=== PATIENT | male | born 1940 | race Caucasian/White ===

== ENCOUNTER 2023-08-01 19:04 | Inpatient (IN) | payer MEDICARE ==
[~2023-08-01] VITALS: Ht 177.8 cm; Wt 81.1 kg
[2023-08-01 20:13] LABS: BASOPHILS % (AUTO) 0.6 % (0-1); EOSINOPHILS # (AUTO) 0.1 X10'3 (0-0.9); EOSINOPHILS % (AUTO) 1.4 % (0-6); HEMOGLOBIN 8.9 g/dl (14.0-17.9); LYMPHOCYTES # (AUTO) 0.4 X10'3 (1.1-4.8); LYMPHOCYTES % (AUTO) 5.7 % (21-51); MEAN CORPUSCULAR HEMOGLOBIN 29.4 PG (27.0-31.0); MEAN CORPUSCULAR HGB CONC 31.8 g/dL (33.0-36.5); MEAN CORPUSCULAR VOLUME 92.3 FL (78-98); MONOCYTES # (AUTO) 0.7 X10'3 (0-0.9); MONOCYTES % (AUTO) 9.5 % (2-12); NEUTROPHILS # (AUTO) 5.7 X10'3 (1.8-7.7); NEUTROPHILS % (AUTO) 82.8 % (42-75); PLATELET COUNT 278 X10'3 (140-440); RED BLOOD COUNT 3.04 X10'6 (4.70-6.10); RED CELL DISTRIBUTION WIDTH 15.4 % (11.5-14.5); WHITE BLOOD COUNT 6.8 X10'3 (4.5-11.0)
[2023-08-01 20:30] LABS: ALANINE AMINOTRANSFERASE 56 U/L (12-78); ALBUMIN 3.1 G/DL (3.4-5.0); ALBUMIN/GLOBULIN RATIO 0.8 (1.1-1.5); ALKALINE PHOSPHATASE 72 IU/L (46-116); ANION GAP 23 (8-16); ASPARTATE AMINO TRANSFERASE 58 U/L (10-37); BILIRUBIN,TOTAL 0.6 MG/DL (0.1-1.0); BLOOD UREA NITROGEN 98 MG/DL (7-18); BUN/CREATININE RATIO 12.6 (10.0-20.0); CALCIUM 8.5 MG/DL (8.5-10.1); CHLORIDE 100 MMOL/L (99-107); CREATININE 7.75 MG/DL (0.60-1.10); GLUCOSE 91 MG/DL (70-104); POTASSIUM 3.4 MMOL/L (3.5-5.1); SODIUM 140 MMOL/L (135-145); TOTAL CARBON DIOXIDE 16.6 MMOL/L (24-32); eCRCL 8 ML/MIN; eGFR 7 ML/MIN
[2023-08-01 20:40] LABS: PRO BRAIN NATRIURETIC PEPTIDE > 30000 PG/ML (0-450)
[2023-08-01 21:09] LABS: MAGNESIUM 2.6 MG/DL (1.5-2.4)
[2023-08-01 21:11] LABS: PHOSPHORUS 11.1 MG/DL (2.3-4.5)
[2023-08-01] MEDS ORDERED: magnesium 4gm in 100ml NS 100 ML IV PRN (22:20)
[2023-08-01] MEDS ORDERED: magnesium 2GM in 50ml NS 50 ML IV PRN (22:20)
[2023-08-01] MEDS ORDERED: ondansetron/PF 4mg/2ml inj IV PRN (22:20)
[2023-08-01] MEDS ORDERED: potassium Cl 40MEQ/1/2NS 520ml 520 ML IV PRN (22:20)
[2023-08-01] MEDS ORDERED: magnesium Cl slow-release 64mg tablet PO PRN (22:20)
[2023-08-01] MEDS ORDERED: potassium Cl 20 mEq SR tablet PO PRN (22:20)
[2023-08-02 03:12] LABS: BASOPHILS % (AUTO) 0.3 % (0-1); EOSINOPHILS # (AUTO) 0.2 X10'3 (0-0.9); EOSINOPHILS % (AUTO) 2.6 % (0-6); HEMOGLOBIN 8.9 g/dl (14.0-17.9); LYMPHOCYTES # (AUTO) 0.6 X10'3 (1.1-4.8); LYMPHOCYTES % (AUTO) 7.9 % (21-51); MEAN CORPUSCULAR HEMOGLOBIN 29.7 PG (27.0-31.0); MEAN CORPUSCULAR HGB CONC 32.9 g/dL (33.0-36.5); MEAN CORPUSCULAR VOLUME 90.3 FL (78-98); MEAN PLATELET VOLUME 7.9 FL (7.4-10.4); MONOCYTES # (AUTO) 0.9 X10'3 (0-0.9); MONOCYTES % (AUTO) 12.2 % (2-12); NEUTROPHILS # (AUTO) 5.8 X10'3 (1.8-7.7); PLATELET COUNT 281 X10'3 (140-440); RED BLOOD COUNT 2.99 X10'6 (4.70-6.10); RED CELL DISTRIBUTION WIDTH 15.6 % (11.5-14.5); WHITE BLOOD COUNT 7.6 X10'3 (4.5-11.0)
[2023-08-02 03:20] LABS: ALBUMIN 2.9 G/DL (3.4-5.0); ANION GAP 23 (8-16); BLOOD UREA NITROGEN 104 MG/DL (7-18); BUN/CREATININE RATIO 12.7 (10.0-20.0); CALCIUM 8.8 MG/DL (8.5-10.1); CHLORIDE 99 MMOL/L (99-107); CREATININE 8.16 MG/DL (0.60-1.10); GLUCOSE 78 MG/DL (70-104); MAGNESIUM 2.8 MG/DL (1.5-2.4); POTASSIUM 3.4 MMOL/L (3.5-5.1); SODIUM 140 MMOL/L (135-145); TOTAL CARBON DIOXIDE 18.5 MMOL/L (24-32); eCRCL 7 ML/MIN; eGFR 6 ML/MIN
[2023-08-02] MEDS: K and/or MAG REPLACEMENT MC SCH (08:00)
[2023-08-02 09:16] LABS: BILIRUBIN,URINE NEGATIVE (Neg); CLARITY,URINE CLEAR (Clear); COLOR,URINE YELLOW (Yellow); GLUCOSE, URINE NEGATIVE (Neg); KETONES,URINE NEGATIVE (Neg); LEUKOCYTE ESTERASE ,URINE NEGATIVE (Neg); NITRITES, URINE NEGATIVE (Neg); OCCULT BLOOD,URINE SMALL (Neg); PH,URINE 5.5 (4.8-8.0); PROTEIN,URINE TRACE mg/dl (Neg); UROBILINOGEN,URINE 0.2 E.U/dL (0.2-1.0)
[2023-08-02 09:19] LABS: UA COLLECTION TYPE URINAL
[2023-08-02 09:20] LABS: BACTERIA,URINE NONE SEEN /HPF (Neg); MUCUS STRANDS NONE SEEN /LPF (Neg); RBC,URINE 0-2 /HPF (0-2); SQUAMOUS EPITHELIAL CELL,UR NONE SEEN /LPF (FEW); WBC,URINE 0-4 /HPF (0-4)
[2023-08-02 09:26] LABS: URINE AMPHETAMINE SCREEN NEGATIVE (Neg); URINE BARBITUATE SCREEN NEGATIVE (Neg); URINE BENZODIAZEPINES SCREEN NEGATIVE (Neg); URINE CANNABINOID SCREEN NEGATIVE (Neg); URINE COCAINE SCREEN NEGATIVE (Neg); URINE METHADONE SCREEN NEGATIVE (Neg); URINE OPIATE SCREEN POSITIVE (Neg); URINE PHENCYCLIDINE SCREEN NEGATIVE (Neg)
[2023-08-02] MEDS ORDERED: normal saline 1000ml 100 ML IV PRN (15:20)
[2023-08-02] MEDS: EPOETIN ALFA-EPBX 20,000 UNIT/ML 1 ML MDV IV ONE (15:44)
[2023-08-02] MEDS: heparin 1,000 units/ml 10ml inj HE ONE (16:00)
[2023-08-02 16:36] VITALS: BP 126/79; PULSE 117; RESP 18; TEMP 97.7; O2SAT 99
[2023-08-02 16:46] VITALS: RESP 18; O2SAT 99
[2023-08-02 19:00] VITALS: BP 134/89; PULSE 105; RESP 17; TEMP 97.7; O2SAT 92
[2023-08-03] VITALS (13 sets, daily range): BP systolic 107–139; BP diastolic 70–86; PULSE 89–128; RESP 16–21; TEMP 97.1–97.7; O2SAT 93–100
[2023-08-03 05:46] LABS: APTT 31 SECONDS (22-32); BASOPHILS # (AUTO) 0.1 X10'3 (0-0.2); BASOPHILS % (AUTO) 0.7 % (0-1); EOSINOPHILS # (AUTO) 0.3 X10'3 (0-0.9); EOSINOPHILS % (AUTO) 3.4 % (0-6); HEMATOCRIT 27.5 % (42.0-52.0); INR 1.1 INR; LYMPHOCYTES # (AUTO) 0.5 X10'3 (1.1-4.8); LYMPHOCYTES % (AUTO) 6.7 % (21-51); MEAN CORPUSCULAR HEMOGLOBIN 29.9 PG (27.0-31.0); MEAN CORPUSCULAR HGB CONC 32.9 g/dL (33.0-36.5); MEAN CORPUSCULAR VOLUME 90.9 FL (78-98); MEAN PLATELET VOLUME 8.4 FL (7.4-10.4); MONOCYTES # (AUTO) 0.9 X10'3 (0-0.9); MONOCYTES % (AUTO) 11.3 % (2-12); NEUTROPHILS # (AUTO) 6.1 X10'3 (1.8-7.7); NEUTROPHILS % (AUTO) 77.9 % (42-75); PLATELET COUNT 268 X10'3 (140-440); PROTHROMBIN TIME 12.1 SECONDS (9.0-12.0); RED BLOOD COUNT 3.03 X10'6 (4.70-6.10); RED CELL DISTRIBUTION WIDTH 15.5 % (11.5-14.5); WHITE BLOOD COUNT 7.9 X10'3 (4.5-11.0)
[2023-08-03 05:54] LABS: ALBUMIN 2.8 G/DL (3.4-5.0); ANION GAP 19 (8-16); BLOOD UREA NITROGEN 103 MG/DL (7-18); BUN/CREATININE RATIO 12.9 (10.0-20.0); CALCIUM 8.6 MG/DL (8.5-10.1); CHLORIDE 102 MMOL/L (99-107); CREATININE 7.99 MG/DL (0.60-1.10); GLUCOSE 102 MG/DL (70-104); MAGNESIUM 2.7 MG/DL (1.5-2.4); POTASSIUM 3.2 MMOL/L (3.5-5.1); SODIUM 141 MMOL/L (135-145); TOTAL CARBON DIOXIDE 20.5 MMOL/L (24-32); eCRCL 7 ML/MIN; eGFR 7 ML/MIN
[2023-08-03] MEDS: potassium Cl 20 mEq SR tablet PO PRN (07:43)
[2023-08-03] MEDS ORDERED: DORZ10DR32 EACHEYE (07:54)
[2023-08-03] MEDS ORDERED: FURO-149 PO (08:00)
[2023-08-03] MEDS ORDERED: CARSR60C PO (08:01)
[2023-08-03] MEDS ORDERED: XAL0.005OS OP (08:03)
[2023-08-03] MEDS ORDERED: POTA-208 PO (08:04)
[2023-08-03] MEDS ORDERED: Melatonin 3mg tablet PO PRN (10:55)
[2023-08-03] MEDS: morphine 2 MG/ML inj. syringe IV PRN (11:13)
[2023-08-03] MEDS ORDERED: heparin 1,000unit/ml 10ml vial 10 ML ONE (11:24)
[2023-08-03] MEDS ORDERED: midazolam 1 mg/ML 2ml injection ONE (12:02)
[2023-08-03] MEDS ORDERED: fentaNYL/PF 50MCG/1 ML 2ML syringe ONE (12:02)
[2023-08-03] MEDS ORDERED: DILT-94 PO (13:09)
[2023-08-03] MEDS ORDERED: FURO20TA4 PO (13:10)
[2023-08-03] MEDS ORDERED: FLO0.4C PO (13:11)
[2023-08-03] MEDS ORDERED: BRIM5DRO6 EACHEYE (13:12)
[2023-08-03] MEDS ORDERED: SODI650T29 PO (13:13)
[2023-08-03] MEDS: mannitol 12.5gm/50mL VIAL IV ONE (13:29)
[2023-08-03] MEDS ORDERED: dorzolamide/timolol (Cosopt) ophthalmic drops 10ml bottle EACHEYE SCH (20:00)
[2023-08-03] MEDS ORDERED: diltiazem SR 60mg capsule (twice daily) PO SCH (20:00)
[2023-08-03] MEDS: diltiazem CD 120mg capsule (once-daily) PO ONE (20:37)
[2023-08-03] MEDS: HYDROcodone/acetaminophen 10/325mg tab PO PRN (20:38)
[2023-08-03] MEDS: brimonidine 0.2% 5 ML ophthalmic drops EACHEYE SCH (21:00)
[2023-08-04] VITALS (11 sets, daily range): BP systolic 92–118; BP diastolic 48–68; PULSE 89–123; RESP 16–22; TEMP 97.7–98.1; O2SAT 95–100
[2023-08-04 06:51] LABS: ALBUMIN 2.7 G/DL (3.4-5.0); ANION GAP 15 (8-16); BLOOD UREA NITROGEN 58 MG/DL (7-18); BUN/CREATININE RATIO 11.3 (10.0-20.0); CALCIUM 8.3 MG/DL (8.5-10.1); CHLORIDE 103 MMOL/L (99-107); CREATININE 5.12 MG/DL (0.60-1.10); GLUCOSE 98 MG/DL (70-104); MAGNESIUM 2.3 MG/DL (1.5-2.4); POTASSIUM 3.5 MMOL/L (3.5-5.1); SODIUM 142 MMOL/L (135-145); TOTAL CARBON DIOXIDE 24.1 MMOL/L (24-32); eCRCL 12 ML/MIN; eGFR 11 ML/MIN
[2023-08-04 06:52] LABS: BASOPHILS % (AUTO) 0.6 % (0-1); EOSINOPHILS # (AUTO) 0.2 X10'3 (0-0.9); EOSINOPHILS % (AUTO) 3.7 % (0-6); HEMATOCRIT 27.8 % (42.0-52.0); HEMOGLOBIN 9.2 g/dl (14.0-17.9); LYMPHOCYTES # (AUTO) 0.8 X10'3 (1.1-4.8); LYMPHOCYTES % (AUTO) 12.7 % (21-51); MEAN CORPUSCULAR HEMOGLOBIN 30.1 PG (27.0-31.0); MEAN CORPUSCULAR HGB CONC 33.1 g/dL (33.0-36.5); MEAN CORPUSCULAR VOLUME 90.9 FL (78-98); MEAN PLATELET VOLUME 8.2 FL (7.4-10.4); MONOCYTES # (AUTO) 0.9 X10'3 (0-0.9); MONOCYTES % (AUTO) 14.4 % (2-12); NEUTROPHILS # (AUTO) 4.2 X10'3 (1.8-7.7); NEUTROPHILS % (AUTO) 68.6 % (42-75); PLATELET COUNT 226 X10'3 (140-440); RED BLOOD COUNT 3.06 X10'6 (4.70-6.10); RED CELL DISTRIBUTION WIDTH 16.2 % (11.5-14.5); WHITE BLOOD COUNT 6.2 X10'3 (4.5-11.0)
[2023-08-04] MEDS: diltiazem CD 120mg capsule (once-daily) PO SCH (07:49)
[2023-08-04] MEDS: tamsulosin 0.4mg capsule PO SCH (07:49)
[2023-08-04 09:10] LABS: PHOSPHORUS 6.2 MG/DL (2.3-4.5)
[2023-08-04] MEDS ORDERED: normal saline 1000ml 250 ML IV PRN (09:10)
[2023-08-04] MEDS: mannitol 12.5gm/50mL VIAL IV ONE (09:56)
[2023-08-04] MEDS: EPOETIN ALFA-EPBX 20,000 UNIT/ML 1 ML MDV IV ONE (11:44)
[2023-08-04] MEDS: heparin 1,000 units/ml 10ml inj HE ONE ×2 (12:00)
[2023-08-04] MEDS ORDERED: apixaban 2.5mg tablet PO SCH (20:00)
[2023-08-04] MEDS: Melatonin 3mg tablet PO PRN (21:21)
[2023-08-05] VITALS (8 sets, daily range): BP systolic 81–123; BP diastolic 48–67; PULSE 68–94; RESP 16–19; TEMP 97.6–98; O2SAT 95–98
[2023-08-05 06:40] LABS: BASOPHILS % (AUTO) 0.4 % (0-1); EOSINOPHILS # (AUTO) 0.2 X10'3 (0-0.9); EOSINOPHILS % (AUTO) 2.8 % (0-6); HEMATOCRIT 27.7 % (42.0-52.0); HEMOGLOBIN 8.8 g/dl (14.0-17.9); LYMPHOCYTES # (AUTO) 0.7 X10'3 (1.1-4.8); LYMPHOCYTES % (AUTO) 8.9 % (21-51); MEAN CORPUSCULAR HEMOGLOBIN 29.4 PG (27.0-31.0); MEAN CORPUSCULAR HGB CONC 31.8 g/dL (33.0-36.5); MEAN CORPUSCULAR VOLUME 92.7 FL (78-98); MEAN PLATELET VOLUME 8.5 FL (7.4-10.4); MONOCYTES % (AUTO) 13.6 % (2-12); NEUTROPHILS # (AUTO) 5.7 X10'3 (1.8-7.7); NEUTROPHILS % (AUTO) 74.3 % (42-75); PLATELET COUNT 195 X10'3 (140-440); RED BLOOD COUNT 2.99 X10'6 (4.70-6.10); RED CELL DISTRIBUTION WIDTH 16.6 % (11.5-14.5); WHITE BLOOD COUNT 7.7 X10'3 (4.5-11.0)
[2023-08-05 06:58] LABS: ALBUMIN 2.6 G/DL (3.4-5.0); ANION GAP 11 (8-16); BLOOD UREA NITROGEN 32 MG/DL (7-18); BUN/CREATININE RATIO 8.2 (10.0-20.0); CALCIUM 8.4 MG/DL (8.5-10.1); CHLORIDE 105 MMOL/L (99-107); CREATININE 3.89 MG/DL (0.60-1.10); GLUCOSE 101 MG/DL (70-104); MAGNESIUM 2.3 MG/DL (1.5-2.4); POTASSIUM 3.5 MMOL/L (3.5-5.1); SODIUM 142 MMOL/L (135-145); TOTAL CARBON DIOXIDE 25.6 MMOL/L (24-32); eCRCL 15 ML/MIN; eGFR 15 ML/MIN
[2023-08-05 07:07] LABS: HBSAG SCREEN Negative (Negative)
[2023-08-05] MEDS ORDERED: normal saline 1000ml 250 ML IV PRN (08:00)
[2023-08-05 08:50] LABS: PHOSPHORUS 3.8 MG/DL (2.3-4.5)
[2023-08-05] MEDS: mannitol 12.5gm/50mL VIAL IV PRN (19:53)
[2023-08-05] MEDS: EPOETIN ALFA-EPBX 20,000 UNIT/ML 1 ML MDV IV ONE (19:57)
[2023-08-05] MEDS: heparin 1,000 units/ml 10ml inj HE ONE ×2 (20:49→20:50)
[2023-08-05] MEDS: mirtazapine 15mg tablet PO SCH (23:19)
[2023-08-06 06:00] VITALS: BP 127/62; PULSE 85; RESP 18; TEMP 98.1; O2SAT 95
[2023-08-06 06:19] LABS: BASOPHILS % (AUTO) 0.4 % (0-1); EOSINOPHILS # (AUTO) 0.3 X10'3 (0-0.9); EOSINOPHILS % (AUTO) 2.8 % (0-6); HEMATOCRIT 28.4 % (42.0-52.0); HEMOGLOBIN 9.2 g/dl (14.0-17.9); LYMPHOCYTES # (AUTO) 0.7 X10'3 (1.1-4.8); LYMPHOCYTES % (AUTO) 7.2 % (21-51); MEAN CORPUSCULAR HEMOGLOBIN 29.8 PG (27.0-31.0); MEAN CORPUSCULAR HGB CONC 32.3 g/dL (33.0-36.5); MEAN PLATELET VOLUME 8.6 FL (7.4-10.4); MONOCYTES # (AUTO) 1.2 X10'3 (0-0.9); MONOCYTES % (AUTO) 12.3 % (2-12); NEUTROPHILS # (AUTO) 7.6 X10'3 (1.8-7.7); NEUTROPHILS % (AUTO) 77.3 % (42-75); PLATELET COUNT 187 X10'3 (140-440); RED BLOOD COUNT 3.08 X10'6 (4.70-6.10); RED CELL DISTRIBUTION WIDTH 16.6 % (11.5-14.5); WHITE BLOOD COUNT 9.8 X10'3 (4.5-11.0)
[2023-08-06 07:02] LABS: ALBUMIN 2.6 G/DL (3.4-5.0); ANION GAP 10 (8-16); BLOOD UREA NITROGEN 23 MG/DL (7-18); CALCIUM 8.4 MG/DL (8.5-10.1); CHLORIDE 105 MMOL/L (99-107); CREATININE 3.28 MG/DL (0.60-1.10); GLUCOSE 97 MG/DL (70-104); POTASSIUM 3.6 MMOL/L (3.5-5.1); SODIUM 142 MMOL/L (135-145); TOTAL CARBON DIOXIDE 27.1 MMOL/L (24-32); eCRCL 18 ML/MIN; eGFR 18 ML/MIN
[2023-08-06 10:00] VITALS: BP 131/62; PULSE 93; RESP 14; TEMP 98.1; O2SAT 92
[2023-08-06] MEDS ORDERED: acetaminophen 325mg tablet PO PRN (12:05)
[2023-08-06] MEDS: acetaminophen 325mg tablet PO PRN (12:52)
[2023-08-06 18:00] VITALS: BP 105/52; PULSE 83; RESP 18; TEMP 98.9; O2SAT 93
[2023-08-06] MEDS: NUT.TX.IMP.RENAL FXN,LAC-REDUC (Nepro) 237 ML VANILLA PO SCH (18:00)
[2023-08-06 19:00] VITALS: RESP 19
[2023-08-06 22:00] VITALS: BP 127/61; PULSE 69; RESP 19; TEMP 99.1; O2SAT 97
[2023-08-07] VITALS (13 sets, daily range): BP systolic 101–137; BP diastolic 43–71; PULSE 58–91; RESP 15–25; TEMP 97–99.1; O2SAT 90–99
[2023-08-07 12:35] LABS: BASOPHILS # (AUTO) 0.1 X10'3 (0-0.2); BASOPHILS % (AUTO) 1.4 % (0-1); EOSINOPHILS # (AUTO) 0.3 X10'3 (0-0.9); EOSINOPHILS % (AUTO) 3.1 % (0-6); HEMATOCRIT 28.4 % (42.0-52.0); LYMPHOCYTES # (AUTO) 0.4 X10'3 (1.1-4.8); LYMPHOCYTES % (AUTO) 4.1 % (21-51); MEAN CORPUSCULAR HEMOGLOBIN 29.4 PG (27.0-31.0); MEAN CORPUSCULAR HGB CONC 31.9 g/dL (33.0-36.5); MEAN CORPUSCULAR VOLUME 92.2 FL (78-98); MEAN PLATELET VOLUME 8.6 FL (7.4-10.4); MONOCYTES # (AUTO) 1.2 X10'3 (0-0.9); MONOCYTES % (AUTO) 11.5 % (2-12); NEUTROPHILS # (AUTO) 8.3 X10'3 (1.8-7.7); NEUTROPHILS % (AUTO) 79.9 % (42-75); PLATELET COUNT 199 X10'3 (140-440); RED BLOOD COUNT 3.08 X10'6 (4.70-6.10); WHITE BLOOD COUNT 10.4 X10'3 (4.5-11.0)
[2023-08-07 12:49] LABS: ALANINE AMINOTRANSFERASE 33 U/L (12-78); ALBUMIN 2.7 G/DL (3.4-5.0); ALBUMIN/GLOBULIN RATIO 0.8 (1.1-1.5); ALKALINE PHOSPHATASE 75 IU/L (46-116); ANION GAP 11 (8-16); ASPARTATE AMINO TRANSFERASE 16 U/L (10-37); BILIRUBIN,TOTAL 0.6 MG/DL (0.1-1.0); BLOOD UREA NITROGEN 35 MG/DL (7-18); BUN/CREATININE RATIO 7.4 (10.0-20.0); CALCIUM 8.2 MG/DL (8.5-10.1); CHLORIDE 106 MMOL/L (99-107); CREATININE 4.71 MG/DL (0.60-1.10); GLUCOSE 104 MG/DL (70-104); POTASSIUM 3.6 MMOL/L (3.5-5.1); SODIUM 146 MMOL/L (135-145); TOTAL CARBON DIOXIDE 28.8 MMOL/L (24-32); TOTAL PROTEIN 6.3 G/DL (6.4-8.2); eCRCL 13 ML/MIN; eGFR 12 ML/MIN
[2023-08-07 13:15] LABS: HBSAG SCREEN Negative (Negative); HEP B CORE AB, TOT Negative (Negative)
[2023-08-07] MEDS: heparin 1,000unit/ml 10ml vial 10 ML IV ONE (14:46)
[2023-08-07] MEDS: heparin 1,000 units/ml 10ml inj IV ONE (16:11)
[2023-08-07] MEDS: heparin 1,000 units/ml 10ml inj HE ONE (16:12)
[2023-08-07] MEDS: EPOETIN ALFA-EPBX 20,000 UNIT/ML 1 ML MDV IV ONE (16:12)
[2023-08-08] VITALS (17 sets, daily range): BP systolic 91–154; BP diastolic 57–93; PULSE 102–132; RESP 22–46; TEMP 97.7–99.7; O2SAT 88–98
[2023-08-08 07:03] LABS: BASOPHILS # (AUTO) 0.1 X10'3 (0-0.2); BASOPHILS % (AUTO) 0.6 % (0-1); EOSINOPHILS # (AUTO) 0.2 X10'3 (0-0.9); LYMPHOCYTES # (AUTO) 0.4 X10'3 (1.1-4.8); LYMPHOCYTES % (AUTO) 4.3 % (21-51); MEAN CORPUSCULAR HEMOGLOBIN 29.9 PG (27.0-31.0); MEAN CORPUSCULAR HGB CONC 32.2 g/dL (33.0-36.5); MEAN CORPUSCULAR VOLUME 92.8 FL (78-98); MEAN PLATELET VOLUME 8.1 FL (7.4-10.4); MONOCYTES % (AUTO) 10.8 % (2-12); NEUTROPHILS # (AUTO) 7.9 X10'3 (1.8-7.7); NEUTROPHILS % (AUTO) 82.3 % (42-75); PLATELET COUNT 196 X10'3 (140-440); RED BLOOD COUNT 3.34 X10'6 (4.70-6.10); RED CELL DISTRIBUTION WIDTH 17.3 % (11.5-14.5); WHITE BLOOD COUNT 9.6 X10'3 (4.5-11.0)
[2023-08-08 07:39] LABS: ALANINE AMINOTRANSFERASE 31 U/L (12-78); ALBUMIN 2.9 G/DL (3.4-5.0); ALBUMIN/GLOBULIN RATIO 0.7 (1.1-1.5); ALKALINE PHOSPHATASE 82 IU/L (46-116); ANION GAP 10 (8-16); ASPARTATE AMINO TRANSFERASE 16 U/L (10-37); BILIRUBIN,TOTAL 0.8 MG/DL (0.1-1.0); BLOOD UREA NITROGEN 24 MG/DL (7-18); BUN/CREATININE RATIO 7.1 (10.0-20.0); CALCIUM 8.4 MG/DL (8.5-10.1); CHLORIDE 105 MMOL/L (99-107); CREATININE 3.38 MG/DL (0.60-1.10); GLUCOSE 98 MG/DL (70-104); MAGNESIUM 2.1 MG/DL (1.5-2.4); PHOSPHORUS 2.6 MG/DL (2.3-4.5); POTASSIUM 3.8 MMOL/L (3.5-5.1); SODIUM 143 MMOL/L (135-145); TOTAL CARBON DIOXIDE 27.9 MMOL/L (24-32); TOTAL PROTEIN 7.1 G/DL (6.4-8.2); eCRCL 18 ML/MIN; eGFR 18 ML/MIN
[2023-08-08] MEDS ORDERED: normal saline 1000ml 100 ML IV PRN (15:00)
[2023-08-08] MEDS: EPOETIN ALFA-EPBX 20,000 UNIT/ML 1 ML MDV IV ONE (15:00)
[2023-08-08] MEDS: heparin 1,000 units/ml 10ml inj HE ONE (15:05)
[2023-08-08] MEDS: metoclopramide 10mg tablet PO PRN (17:39)
[2023-08-08] MEDS: amiodarone 150mg/dext, iso-os 100 ML IV ONE (19:49)
[2023-08-08] MEDS ORDERED: ipratropium/albuterol 3ml nebule NEB PRN (19:55)
[2023-08-08 20:18] LABS: D-DIMER 9.91 MG/L FEU (0-0.50)
[2023-08-08 20:26] LABS: OSMOLALITY 302 MOSM/K (280-300)
[2023-08-08 20:38] LABS: ALANINE AMINOTRANSFERASE 29 U/L (12-78); ALBUMIN 2.7 G/DL (3.4-5.0); ALBUMIN/GLOBULIN RATIO 0.7 (1.1-1.5); ALKALINE PHOSPHATASE 78 IU/L (46-116); ANION GAP 13 (8-16); ASPARTATE AMINO TRANSFERASE 20 U/L (10-37); BILIRUBIN,TOTAL 0.8 MG/DL (0.1-1.0); BLOOD UREA NITROGEN 33 MG/DL (7-18); BUN/CREATININE RATIO 7.6 (10.0-20.0); CALCIUM 7.6 MG/DL (8.5-10.1); CHLORIDE 104 MMOL/L (99-107); CREATININE 4.32 MG/DL (0.60-1.10); GLUCOSE 128 MG/DL (70-104); POTASSIUM 4.3 MMOL/L (3.5-5.1); SODIUM 146 MMOL/L (135-145); TOTAL CARBON DIOXIDE 28.8 MMOL/L (24-32); TOTAL PROTEIN 6.8 G/DL (6.4-8.2); eCRCL 14 ML/MIN; eGFR 13 ML/MIN
[2023-08-08 20:51] LABS: C-REACTIVE PROTEIN 7.57 MG/DL (0.0-0.5); LACTATE DEHYDROGENASE 305 U/L (85-227); PRO BRAIN NATRIURETIC PEPTIDE 24517 PG/ML (0-450)
[2023-08-08 20:57] LABS: FERRITIN 203 NG/ML (26-388)
[2023-08-08] MEDS: pantoprazole 40mg Tablet.DR PO SCH (21:00)
[2023-08-08 21:28] LABS: ABG BASE EXCESS 3.3 mmol/L (-2.0-2.0); ABG HCO3 26.7 mmol/L (22.0-26.0); ABG OXYGEN SATURATION 89.9 % (94-97); ABG PCO2 (T) 36.9 mmHg (35.0-48.0); ABG PO2 (T) 56.3 mmHg (75.0-100.0); ALLEN'S TEST Modified; FCOHb 0.7 % (0.0-3.9); FLOW 4 L/min; FMetHb 0.3 % (0.0-1.5); MODE NASAL CANNULA; PATIENT TEMPERATURE 37.6; TOTAL HEMOGLOBIN 9.9 G/dl (14.0-17.9)
[2023-08-08] MEDS: amiodarone/D5 360MG/200ML BAG 200 ML IV SCH (21:53)
[2023-08-08] MEDS: CefTRIAXone/D5W-Rocephin 1gm 50 ML IV SCH (22:00)
[2023-08-09] VITALS (20 sets, daily range): BP systolic 71–159; BP diastolic 47–90; PULSE 85–128; RESP 10–30; TEMP 97.3–98.6; O2SAT 87–100
[2023-08-09] MEDS: albumin (Human) 5% 250ml 250 ML IV ONE ×2 (00:20→03:02)
[2023-08-09] MEDS ORDERED: LORazepam 2 mg/ml vial IM ONE (01:40)
[2023-08-09] MEDS: LORazepam 2 mg/ml vial IV ONE ×2 (02:02→12:30)
[2023-08-09 10:10] LABS: BASOPHILS # (AUTO) 0.1 X10'3 (0-0.2); BASOPHILS % (AUTO) 0.5 % (0-1); EOSINOPHILS % (AUTO) 0.2 % (0-6); HEMATOCRIT 28.3 % (42.0-52.0); HEMOGLOBIN 8.8 g/dl (14.0-17.9); LYMPHOCYTES # (AUTO) 0.3 X10'3 (1.1-4.8); LYMPHOCYTES % (AUTO) 3.6 % (21-51); MEAN CORPUSCULAR HEMOGLOBIN 29.4 PG (27.0-31.0); MEAN CORPUSCULAR HGB CONC 31.2 g/dL (33.0-36.5); MEAN CORPUSCULAR VOLUME 94.1 FL (78-98); MEAN PLATELET VOLUME 8.3 FL (7.4-10.4); MONOCYTES # (AUTO) 1.4 X10'3 (0-0.9); MONOCYTES % (AUTO) 14.9 % (2-12); NEUTROPHILS # (AUTO) 7.7 X10'3 (1.8-7.7); NEUTROPHILS % (AUTO) 80.8 % (42-75); PLATELET COUNT 160 X10'3 (140-440); RED CELL DISTRIBUTION WIDTH 17.4 % (11.5-14.5); WHITE BLOOD COUNT 9.6 X10'3 (4.5-11.0)
[2023-08-09] MEDS: azithromycin/NS 500mg/250ml 250 ML IV SCH (10:37)
[2023-08-09 11:08] LABS: ALANINE AMINOTRANSFERASE 22 U/L (12-78); ALBUMIN 2.9 G/DL (3.4-5.0); ALBUMIN/GLOBULIN RATIO 0.8 (1.1-1.5); ALKALINE PHOSPHATASE 62 IU/L (46-116); ANION GAP 13 (8-16); ASPARTATE AMINO TRANSFERASE 12 U/L (10-37); BILIRUBIN,TOTAL 0.6 MG/DL (0.1-1.0); BLOOD UREA NITROGEN 41 MG/DL (7-18); BUN/CREATININE RATIO 8.7 (10.0-20.0); CALCIUM 8.1 MG/DL (8.5-10.1); CHLORIDE 106 MMOL/L (99-107); CREATININE 4.71 MG/DL (0.60-1.10); GLUCOSE 109 MG/DL (70-104); POTASSIUM 4.3 MMOL/L (3.5-5.1); SODIUM 146 MMOL/L (135-145); TOTAL CARBON DIOXIDE 26.6 MMOL/L (24-32); TOTAL PROTEIN 6.5 G/DL (6.4-8.2); eCRCL 13 ML/MIN; eGFR 12 ML/MIN
[2023-08-09 11:10] LABS: MAGNESIUM 2.3 MG/DL (1.5-2.4); PHOSPHORUS 3.6 MG/DL (2.3-4.5)
[2023-08-09] MEDS ORDERED: LORazepam 0.5 MG tablet PO PRN (21:25)
[2023-08-09] MEDS: aspirin 300mg supp.rect RC SCH (23:00)
[2023-08-10] VITALS (15 sets, daily range): BP systolic 86–115; BP diastolic 54–68; PULSE 107–128; RESP 11–36; TEMP 97.3–97.9; O2SAT 90–99
[2023-08-10 09:19] LABS: BASOPHILS % (AUTO) 0.3 % (0-1); EOSINOPHILS # (AUTO) 0.1 X10'3 (0-0.9); EOSINOPHILS % (AUTO) 0.9 % (0-6); HEMATOCRIT 28.8 % (42.0-52.0); HEMOGLOBIN 8.9 g/dl (14.0-17.9); LYMPHOCYTES # (AUTO) 0.3 X10'3 (1.1-4.8); LYMPHOCYTES % (AUTO) 2.3 % (21-51); MEAN CORPUSCULAR HEMOGLOBIN 28.9 PG (27.0-31.0); MEAN CORPUSCULAR VOLUME 93.4 FL (78-98); MEAN PLATELET VOLUME 8.7 FL (7.4-10.4); MONOCYTES # (AUTO) 2.1 X10'3 (0-0.9); MONOCYTES % (AUTO) 17.1 % (2-12); NEUTROPHILS # (AUTO) 9.8 X10'3 (1.8-7.7); NEUTROPHILS % (AUTO) 79.4 % (42-75); PLATELET COUNT 151 X10'3 (140-440); RED BLOOD COUNT 3.09 X10'6 (4.70-6.10); RED CELL DISTRIBUTION WIDTH 16.9 % (11.5-14.5); WHITE BLOOD COUNT 12.4 X10'3 (4.5-11.0)
[2023-08-10] MEDS ORDERED: diltiazem-D5W 125mg/125ml 125 ML IV SCH (10:30)
[2023-08-10 11:08] LABS: ALANINE AMINOTRANSFERASE 40 U/L (12-78); ALBUMIN 2.8 G/DL (3.4-5.0); ALBUMIN/GLOBULIN RATIO 0.8 (1.1-1.5); ALKALINE PHOSPHATASE 64 IU/L (46-116); ANION GAP 15 (8-16); ASPARTATE AMINO TRANSFERASE 61 U/L (10-37); BILIRUBIN,TOTAL 0.6 MG/DL (0.1-1.0); BLOOD UREA NITROGEN 53 MG/DL (7-18); BUN/CREATININE RATIO 9.2 (10.0-20.0); CALCIUM 7.8 MG/DL (8.5-10.1); CHLORIDE 106 MMOL/L (99-107); CREATININE 5.76 MG/DL (0.60-1.10); GLUCOSE 109 MG/DL (70-104); POTASSIUM 4.1 MMOL/L (3.5-5.1); SODIUM 144 MMOL/L (135-145); TOTAL PROTEIN 6.5 G/DL (6.4-8.2); eCRCL 10 ML/MIN; eGFR 10 ML/MIN
[2023-08-10 11:10] LABS: ANISOCYTOSIS 1+; ELLIPTOCYTES FEW; PLATELET ESTIMATE NORMAL; TEAR DROP CELLS FEW; TOTAL CELLS COUNTED 100
[2023-08-10 11:37] LABS: MAGNESIUM 2.3 MG/DL (1.5-2.4); PHOSPHORUS 4.1 MG/DL (2.3-4.5)
[2023-08-10] MEDS: diltiazem-NS 100mg/100ml 100 ML IV SCH (11:52)
[2023-08-10] MEDS ORDERED: acetaminophen 325mg tablet PO PRN (15:10)
[2023-08-10] MEDS ORDERED: docusate sod 100mg capsule PO PRN (15:10)
[2023-08-11 07:00] VITALS: BP 125/75; PULSE 125; RESP 17; TEMP 98; O2SAT 74
[2023-08-11] MEDS: morphine 10mg/0.5ml (conc. morphine) oral syringe PO PRN (09:03)
[2023-08-11] MEDS: LORazepam 2 mg/ml vial IV PRN (09:10)
[2023-08-11] MEDS: morphine 10mg/ml inj. IV PRN (10:43)
[2023-08-11] MEDS ORDERED: scopolamine 1MG/72H patch 1 PATCH PATCH.TD.3 TD SCH (14:50)
[2023-08-11] MEDS ORDERED: scopolamine 1MG/72H patch 1 PATCH PATCH.TD.3 TD PRN (18:01)
[2023-08-11 19:00] VITALS: RESP 22
[2023-08-11 22:00] VITALS: BP 122/73; PULSE 76; RESP 18; TEMP 97.3; O2SAT 95
[2023-08-12 07:00] VITALS: RESP 15; O2SAT 77
[2023-08-12 09:23] VITALS: BP 117/58; PULSE 56; RESP 15; TEMP 97; O2SAT 77
[2023-08-12 17:08] VITALS: RESP 19
[2023-08-12 18:00] VITALS: BP 117/79; PULSE 58; RESP 16; O2SAT 77
[2023-08-12 19:59] VITALS: RESP 20; O2SAT 77
[2023-08-13] VITALS (7 sets, daily range): PULSE 108–124; RESP 20–34; O2SAT 77–98
[2023-08-13] MEDS: LORazepam 2 mg/ml vial IV PRN (17:51)
[2023-08-14 07:00] VITALS: RESP 12
[2023-08-14 19:45] VITALS: RESP 30; O2SAT 25
[2023-08-14 21:05] VITALS: BP 100/45; PULSE 111; RESP 25; O2SAT 64
[2023-08-15 08:10] VITALS: RESP 25
[2023-08-15 19:00] VITALS: RESP 20; O2SAT 77
[2023-08-15 22:00] VITALS: BP 105/54; PULSE 105; RESP 12; TEMP 98; O2SAT 80
== END 2023-08-16 12:07 | DRG 673 ==
LOC: ER 19:06 → OBSVTOIN 22:22 → ED HOLD 22:22 → ORTHO 4S 08-02 16:59 → PCU 3S 08-07 17:31 → ORTHO 4S 08-11 14:56
PROVIDERS: ADMIT Internal Medicine; ATTEND Internal Medicine
PROC: 0JH63XZ Insertion of Tunneled Vascular Access Device into Chest Subcutaneous Tissue and Fascia, Percutaneous Approach (ICD-10-PCS; principal; 2023-08-03)
PROC: 02HV33Z Insertion of Infusion Device into Superior Vena Cava, Percutaneous Approach (ICD-10-PCS; 2023-08-03)
PROC: B5181ZA Fluoroscopy of Superior Vena Cava using Low Osmolar Contrast, Guidance (ICD-10-PCS; 2023-08-03)
PROC: B548ZZA Ultrasonography of Superior Vena Cava, Guidance (ICD-10-PCS; 2023-08-03)
PROC: 5A1D70Z Performance of Urinary Filtration, Intermittent, Less than 6 Hours Per Day (ICD-10-PCS; 2023-08-03)
PROC: 5A1D70Z Performance of Urinary Filtration, Intermittent, Less than 6 Hours Per Day (ICD-10-PCS; 2023-08-04)
PROC: 5A1D70Z Performance of Urinary Filtration, Intermittent, Less than 6 Hours Per Day (ICD-10-PCS; 2023-08-05)
PROC: 5A1D70Z Performance of Urinary Filtration, Intermittent, Less than 6 Hours Per Day (ICD-10-PCS; 2023-08-07)
PROC: 5A09357 Assistance with Respiratory Ventilation, Less than 24 Consecutive Hours, Continuous Positive Airway Pressure (ICD-10-PCS; 2023-08-08)
PROC: 5A09357 Assistance with Respiratory Ventilation, Less than 24 Consecutive Hours, Continuous Positive Airway Pressure (ICD-10-PCS; 2023-08-09)
PROC: 5A09357 Assistance with Respiratory Ventilation, Less than 24 Consecutive Hours, Continuous Positive Airway Pressure (ICD-10-PCS; 2023-08-10)
PROC: 0JPT3XZ Removal of Tunneled Vascular Access Device from Trunk Subcutaneous Tissue and Fascia, Percutaneous Approach (ICD-10-PCS; 2023-08-11)
PROC: 05PYX3Z Removal of Infusion Device from Upper Vein, External Approach (ICD-10-PCS; 2023-08-11)
DX: N17.9 Acute kidney failure, unspecified (principal); U07.1 COVID-19; E87.20 Acidosis, unspecified; I48.92 Unspecified atrial flutter; E83.42 Hypomagnesemia; E83.39 Other disorders of phosphorus metabolism; D64.9 Anemia, unspecified; N18.6 End stage renal disease; Z79.899 Other long term (current) drug therapy; Z99.2 Dependence on renal dialysis; Z51.5 Encounter for palliative care
CPT/HCPCS: 36415; 36558; 36589; 36600; 71045; 74230; 76942; 77001; 80048; 80053; 80305; 81001; 82728; 82803; 83605; 83615; 83735; 83880; 83930; 84100; 84145; 84484; 84550; 85007; 85018; 85025; 85379; 85610; 85651; 85730; 86140; 86704; 87040; 87081; 87340; 87811; 92508; 93005; 93308; 94660; 94760; 97116; 97161; 97530; 99152; 99153; 99285; A4349; A4615; A4620; A6212; A6213; A6258; A6449; A9270; C1750; C1769; C1894; E1594; G0257; G0378; J0282; J0456; J0696; J1644; J2060; J2150; J2250; J2270; J2274; J3010; J3490; J7030; J7040; P9045; Q4081